=== PATIENT | male | born 1970 | race Caucasian/White ===

== ENCOUNTER 2018-07-26 07:25 | Day surgery (SDC) | payer OTHER ==
[2018-07-26] MEDS ORDERED: NACL 0.9% 1000 ML 1,000 ML IV SCH (09:00)
--- NOTE | 2018-07-26 11:01 | Anesthesia Day of Surgery ---
Anesthesia Day of Surgery - Day of Surgery Patient Examined: Yes Patient H&P Reviewed: Yes Patient is NPO: Yes Beta Blockers: No
--- NOTE | 2018-07-26 11:02 | Anesthesia Consultation ---
Anesthesia Consult and Med Hx Date of service: 07/26/18 - Airway Anesthetic Teeth Evaluation: Good ROM Head & Neck: Adequate Mental/Hyoid Distance: Adequate Mallampati Class: Class III Intubation Access Assessment: Good - Pulmonary Exam CTA: Yes - Cardiac Exam Cardiac Exam: No Murmur - Pre-Operative Health Status ASA Pre-Surgery Classification: ASA1 Proposed Anesthetic Plan: MAC - Pulmonary Hx Smoking: No Hx Asthma: No Hx Respiratory Symptoms: No SOB: No COPD: No Home Oxygen Therapy: No Hx Pneumonia: No Hx Sleep Apnea: No - Cardiovascular System Hx Hypertension: No Hx Coronary Artery Disease: No Hx Heart Attack/AMI: No Hx Angina: No Hx Percutaneous Transluminal Coronary Angioplasty (PTCA): No Hx Cardia Arrhythmia: No Hx Pacemaker: No Hx Internal Defibrillator: No Hx Valvular Heart Disease: No Hx Heart Murmur: No Hx Peripheral Vascular Disease: No - Central Nervous System Hx Neuromuscular Disorder: No Hx Seizures: No - Gastrointestinal Hx Ulcer: No Hx Gastroesophageal Reflux Disease: No - Endocrine Hx Renal Disease: No Hx End Stage Renal Disease: No Hx Cirrhosis: No Hx Liver Disease: No Hx Insulin Dependent Diabetes: No Hx Non-Insulin Dependent Diabetes: No Hx Thyroid Disease: No Hx Hypothyroidism: No Hx Hyperthyroidism: No - Hematic Hx Anemia: No Hx Sickle Cell Disease: No - Other Systems Hx Alcohol Use: No Hx Substance Use: No Hx Cancer: No Hx Obesity: No
[2018-07-26] MEDS ORDERED: VERSED ONE (11:05)
[2018-07-26] MEDS ORDERED: DIPRIVAN 10 MG/ML IV ONE (11:05)
[2018-07-26] MEDS ORDERED: XYLOCAINE 2% UROJET ONE (11:20)
--- NOTE | 2018-07-26 11:35 | Procedure Note ---
Date of procedure: 07/26/18 Pre-op diagnosis: Hematochezia Post-op diagnosis: other (Hematochezia secondary to Moderate, Internal Hemorrhoids (s/p Banding x 3)) Procedure: Colonoscopy and Flexible Sigmoidoscopy with Banding x 3 Anesthesia: MAC Surgeon: SAUL DE LA CRUZ Estimated blood loss: minimal Pathology: none Condition: stable Disposition: same day (Avoid aspirin and NSAID for 5 days. Sitz Bath twice daily for 7 days. follow up in 1 to 2 weeks ([phone]).)
[2018-07-26 12:00] VITALS: BP 126/73
--- NOTE | 2018-07-26 12:29 | Operative Report ---
PROCEDURE: Colonoscopy. INDICATIONS: The patient is a 48-year-old gentleman with no significant past medical history who had been having hematochezia and had colonoscopy done to assess for the problem. DESCRIPTION OF PROCEDURE: The procedure was done after getting informed consent with MAC anesthesia. Initial rectal exam was unremarkable. Instrument was passed through the rectum onto the cecum, which was identified by the ileocecal valve and the appendiceal orifice. Visualization was fair. Cecum, ascending colon, transverse colon, descending colon, and sigmoid showed normal mucosa. There was no evidence of any polyps, colitis or diverticular disease. The rectum showed moderate internal hemorrhoids on the retroverted view, which may have been the cause of the patient's bleeding. There was no bleeding associated with the colonoscopy and no complications associated with the procedure. ASSESSMENT: Hematochezia secondary to moderate internal hemorrhoids. PLAN: To do flex sig with banding for treatment of the condition and there were no biopsies done and no bleeding associated with the colonoscopy. RNLanie was in the room throughout the entirety of the procedure. JOB# [id number] DIXIE/JOLANTA
--- NOTE | 2018-07-26 12:36 | Operative Report ---
PROCEDURE: Flexible sigmoidoscopy with banding. INDICATIONS: This is a 48-year-old gentleman in otherwise good health, who had presented because of hematochezia. Colonoscopy showed presence of moderate internal hemorrhoids because of the patient's hematochezia. Flex sig with banding was done for further treatment. After getting informed consent the EGD scope with the banding apparatus mounted. It was then introduced through the rectum and retroflexed. Three of the largest hemorrhoids were then suctioned into the suction channel and rubber bands were applied. Five rubber bands were deployed; however, two did not take and 3 of them did and the patient had 3 of the largest internal hemorrhoids banded. ASSESSMENT: Hematochezia secondary to moderate internal hemorrhoids, status post banding x 3. There was minimal bleeding associated with the procedure. No complications associated with the procedure. PLAN: To encourage the patient to take Sitz bath analgesics as needed, avoid aspirin and aspirin-related products for the next few days and take one tablespoon of mineral oil 3 times a day as needed. Follow up in the office in 1-2 weeks' time and continue present treatment. MERCY Silvestre was in the room throughout the entirety of the proceedure. JOB# [id number] DIXIE/JOLANTA DOUGLAS
== END 2018-07-26 07:26 | disposition home or self-care (01) ==
LOC: GIO 07:25
DX: K64.8 Other hemorrhoids (principal); K92.1 Melena; Z79.899 Other long term (current) drug therapy
CPT/HCPCS: 45398; J2250; J2704; J7030